=== PATIENT | male | born 1975 | race Caucasian/White ===

== ENCOUNTER 2018-11-28 14:31 | Emergency (ER) | payer BC, OTHER ==
[2018-11-28 14:53] VITALS: BP 131/84; PULSE 68; RESP 16; TEMP 97.5
--- NOTE | 2018-11-28 16:05 | ED ---
General Adult HPI - General Chief complaint: Extremity Problem,Nontraumatic Stated complaint: Shoulder pain Time Seen by Provider: 11/28/18 15:55 Source: patient, RN notes reviewed Mode of arrival: ambulatory Limitations: no limitations - History of Present Illness Initial comments: Patient is a pleasant 43-year-old male presenting to the emergency department with complaints of right shoulder discomfort. Discomfort is positional. Symptoms have been present for several weeks. Discomfort is mostly exacerbated with lifting over and behind the head. No known injury. No known trauma. No redness. No weakness. No history of similar symptoms prior to the past few weeks. No loss of sensation. No fevers. - Related Data Home Medications Medication Instructions Recorded Confirmed No Known Home Medications 05/08/17 11/28/18 Allergies Allergy/AdvReac Type Severity Reaction Status Date / Time No Known Allergies Allergy Verified 11/28/18 16:00 Review of Systems ROS Statement: Those systems with pertinent positive or pertinent negative responses have been documented in the HPI. ROS Other: All systems not noted in ROS Statement are negative. Constitutional: Denies: fever Eyes: Denies: eye pain ENT: Denies: ear pain Respiratory: Denies: cough Cardiovascular: Denies: chest pain Endocrine: Denies: fatigue Gastrointestinal: Denies: abdominal pain Genitourinary: Denies: dysuria Musculoskeletal: Reports: arthralgia. Denies: back pain Skin: Denies: rash Neurological: Denies: weakness Past Medical History Past Medical History: No Reported History History of Any Multi-Drug Resistant Organisms: None Reported Past Surgical History: Orthopedic Surgery Past Psychological History: No Psychological Hx Reported Smoking Status: Current every day smoker Past Alcohol Use History: Occasional Past Drug Use History: None Reported General Exam Limitations: no limitations General appearance: alert, in no apparent distress Head exam: Present: atraumatic Eye exam: Present: normal appearance, PERRL ENT exam: Present: normal oropharynx Neck exam: Present: normal inspection Respiratory exam: Present: normal lung sounds bilaterally Cardiovascular Exam: Present: regular rate, normal rhythm Expanded Peripheral pulses: 2+: Radial (R) Extremities exam: Present: full ROM, other (Patient has prominence of bilateral acromioclavicular joints, slightly more on the right. There is mild tenderness in the right acromioclavicular joint.) Neurological exam: Present: alert. Absent: motor sensory deficit Expanded Motor strength exam: RUE: 5 Psychiatric exam: Present: normal affect, normal mood Skin exam: Present: normal color Course Vital Signs 11/28/18 14:49 Temperature 97.5 F L Pulse Rate 68 Respiratory 16 Rate Blood Pressure 131/84 O2 Sat by Pulse 98 Oximetry Medical Decision Making - Medical Decision Making Patient reevaluated and updated. Patient refuses sling. Patient states he will take Motrin that he has and does not need prescription. - Radiology Data Interpreted by me: X-ray right shoulder and weighted AC joints without. Abnormality. Disposition Clinical Impression: Shoulder strain Disposition: HOME SELF-CARE Condition: Stable Instructions (If sedation given, give patient instructions): Rotator Cuff Injury (ED), Shoulder Sprain (ED) Additional Instructions: Please follow-up with primary care physician and/or orthopedics in the next day or 2 for recheck. Motrin as needed. Consider physical therapy. Return for weakness, increased pain or swelling, redness, fevers, worsening symptoms or other concerns. Avoid repetitive use of the shoulder. Is patient prescribed a controlled substance at d/c from ED?: No Referrals: Reuben Bullard MD [STAFF PHYSICIAN] - 1-2 days John Castañeda MD [STAFF PHYSICIAN] - 1-2 days Time of Disposition: 16:46
--- NOTE | 2018-11-28 16:57 | XR ---
PROCEDURE: XR AC joint BILAT - 6V DATE AND TIME: 11/28/2018 4:39 PM CLINICAL INDICATION: Pain for couple weeks; no injury; with and without weights TECHNIQUE: AP views of the acromioclavicular joints without and with weights. In addition, right AC joint AP view without and with weights. Also, left AC joint AP view without and with weights. COMPARISON: None FINDINGS: Right acromioclavicular joint: There is moderate circumferential osteophytic spurring at the AC joint , with mild joint space narrowing. The joint is congruent without weights and also with weights. No i ncidental findings. Left acromioclavicular joint: There is mild-moderate circumferential osteophytic spurring at the AC j oint, with mild joint space narrowing. The joint is congruent without weights and also with weights. No incidental findings. IMPRESSION: Bilateral osteoarthritis, slightly greater on the right.
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
== END 2018-11-28 17:05 | disposition home or self-care (01) ==
LOC: EC 14:31
DX: S46.911A Strain of unspecified muscle, fascia and tendon at shoulder and upper arm level, right arm, initial encounter (principal); F17.200 Nicotine dependence, unspecified, uncomplicated; Z53.29 Procedure and treatment not carried out because of patient's decision for other reasons; X58.XXXA Exposure to other specified factors, initial encounter
CPT/HCPCS: 73050; 99283

== ENCOUNTER 2019-06-18 03:12 | Emergency (ER) | payer OTHER ==
[2019-06-18 03:20] VITALS: RESP 18
[2019-06-18] MEDS ORDERED: HYDROcodone/APAP 5-325MG 1 EACH TAB PO STA (03:47)
[2019-06-18] MEDS ORDERED: IBUPROFEN 600 MG TAB PO STA (03:47)
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
[2019-06-18] MEDS ORDERED: LIDOCAINE 1% INJ 10MG/ML (20 ML MDV) SQ ONE (04:48)
[2019-06-18 05:31] VITALS: BP 138/85; PULSE 88; TEMP 98
== END 2019-06-18 05:31 | disposition home or self-care (01) ==
LOC: EC 03:12
DX: S01.01XA Laceration without foreign body of scalp, initial encounter (principal); H57.89 Other specified disorders of eye and adnexa; F17.200 Nicotine dependence, unspecified, uncomplicated; Y04.0XXA Assault by unarmed brawl or fight, initial encounter; Y92.410 Unspecified street and highway as the place of occurrence of the external cause
CPT/HCPCS: 70450; 99284; 12002; J2001

== ENCOUNTER 2019-12-01 13:27 | Emergency (ER) | payer OTHER ==
[2019-12-01] MEDS ORDERED: ACETAMINOPHEN TAB 500 MG TAB PO STA (13:50)
--- NOTE | 2019-12-01 14:14 | ED ---
General Adult HPI - General Chief complaint: Upper Respiratory Infection Stated complaint: Cough Time Seen by Provider: 12/01/19 13:30 Source: patient, RN notes reviewed, old records reviewed Mode of arrival: ambulatory Limitations: no limitations - History of Present Illness Initial comments: This is a 44-year-old male presents emergency Department complaining of having a sore throat and having a cough over the last couple of days. Patient states he felt warm but never took his temperature. Patient denies any shortness of breath or difficulty breathing. Patient denies any chest pain or palpitations. Patient denies any abdominal pain. Patient denies nausea vomiting diarrhea. Patient denies any neck pain or stiffness. - Related Data Previous Rx's Medication Instructions Recorded Azithromycin [Zithromax Tri-John] 500 mg PO DAILY #3 tab 12/01/19 Allergies Allergy/AdvReac Type Severity Reaction Status Date / Time No Known Allergies Allergy Verified 12/01/19 13:31 Review of Systems ROS Statement: Those systems with pertinent positive or pertinent negative responses have been documented in the HPI. ROS Other: All systems not noted in ROS Statement are negative. Past Medical History Past Medical History: No Reported History History of Any Multi-Drug Resistant Organisms: None Reported Past Surgical History: Orthopedic Surgery Past Psychological History: No Psychological Hx Reported Past Alcohol Use History: Occasional Past Drug Use History: Marijuana General Exam - General Exam Comments Initial Comments: GENERAL: Patient is well-developed and well-nourished. Patient is nontoxic and well- hydrated and is in mild distress. ENT: Neck is soft and supple. No significant lymphadenopathy is noted. Oropharynx is mildly erythematous. Moist mucous membranes. Neck has full range of motion without eliciting any pain. EYES: The sclera were anicteric and conjunctiva were pink and moist. Extraocular movements were intact and pupils were equal round and reactive to light. Eyelids were unremarkable. PULMONARY: Unlabored respirations. Good breath sounds bilaterally. No audible rales rhonchi or wheezing was noted. CARDIOVASCULAR: There is a regular rate and rhythm without any murmurs gallops or rubs. ABDOMEN: Soft and nontender with normal bowel sounds. No palpable organomegaly was noted. There is no palpable pulsatile mass. SKIN: Skin is clear with no lesions or rashes and otherwise unremarkable. NEUROLOGIC: Patient is alert and oriented x3. Cranial nerves II through XII are grossly intact. Motor and sensory are also intact. Normal speech, volume and content. Symmetrical smile. MUSCULOSKELETAL: Normal extremities with adequate strength and full range of motion. LYMPHATICS: No significant lymphadenopathy is noted PSYCHIATRIC: Normal psychiatric evaluation. Limitations: no limitations Course Vital Signs 12/01/19 12/01/19 13:28 14:40 Temperature 100.1 F H 98.7 F Pulse Rate 104 H 86 Respiratory 20 18 Rate Blood Pressure 139/73 118/68 O2 Sat by Pulse 100 96 Oximetry Medical Decision Making - Medical Decision Making chest x-ray is negative. Strep test is negative. - Lab Data Lab Results 12/01/19 Range/Units 14:00 Group A Strep Rapid Negative (Negative) Disposition Clinical Impression: Bronchitis, Pharyngitis Disposition: HOME SELF-CARE Condition: Good Prescriptions: Azithromycin [Zithromax Tri-John] 500 mg PO DAILY #3 tab Is patient prescribed a controlled substance at d/c from ED?: No Referrals: None,Stated [Primary Care Provider] - 1-2 days Time of Disposition: 14:41
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
[2019-12-01 14:41] VITALS: BP 118/68; PULSE 86; RESP 18; TEMP 98.7
== END 2019-12-01 15:00 | disposition home or self-care (01) ==
LOC: EC 13:27
DX: J40 Bronchitis, not specified as acute or chronic (principal); J02.9 Acute pharyngitis, unspecified; Z20.828 Contact with and (suspected) exposure to other viral communicable diseases
CPT/HCPCS: 87081; 87430; 71046; 99284; U0003